=== PATIENT | male | born 1960 | race Caucasian/White ===

== ENCOUNTER 2017-10-31 17:38 | Observation (INO) | payer OTHER, SELFPAY ==
[2017-10-31] VITALS (19 sets, daily range): BP systolic 136–216; BP diastolic 85–120; PULSE 78–94; RESP 15–20; TEMP 36.4–36.8; O2SAT 95–99; BMI 33.7; BMI 33.1; BMI 33.2
--- NOTE | 2017-10-31 17:48 | EKG12_ITS ---
Test Reason : HTN Blood Pressure : / mmHG Vent. Rate : 090 BPM Atrial Rate : 090 BPM P-R Int : 210 ms QRS Dur : 100 ms QT Int : 366 ms P-R-T Axes : 042 034 053 degrees QTc Int : 447 ms Sinus rhythm with 1st degree A-V block Incomplete right bundle branch block Confirmed by SADIA RAMOS, JOSE ([id number]), manuscript editor MALDONADO MATTA ([id number]) on 11/04/2017 2:22:53 PM Referred By: Bart Hendrix Confirmed By:JOSE MCCULLOUGH MD
--- NOTE | 2017-10-31 17:48 | CT_ITS ---
STUDY: CT BRAIN WITHOUT CONTRAST REASON FOR EXAM: Male, 57 years old. Dizziness and ataxia. Possibly uncontrolled hypertension. RADIATION DOSAGE (If Supplied By Facility): CTDIvol = ( 44.99 ) mGy, DLP = ( 796.11 ) mGycm TECHNIQUE: Transaxial CT imaging of the brain was performed without administration of intravenous contrast material. Individualized dose optimization techniques were used for this CT. COMPARISON: None. FINDINGS: Normal soft tissue structures. Normal calvarium. Normal size ventricles and extra-axial spaces for the patient's age. Normal white matter tracts of the cerebral hemispheres. Normal basal ganglia and thalami. Normal brainstem. Oh small right cerebellar infarct. There is no intracranial hemorrhage. There are no findings of an acute ischemic infarction. Marked mucosal thickening of the left maxillary sinus. Large retention cyst of the right maxillary sinus. Mucosal thickening in the inferior recesses of the frontal sinuses. CT/Brain/Head without Contrast IMPRESSION: No acute intracranial findings. Negative for hemorrhage, hematoma or mass density. 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 Otherwise normal head CT exam. Electronically Signed: Radha Vides MD at 20:05 EDT , Service support ,
[2017-10-31 18:30] LABS: Bedside Glucose 267 mg/dL (70-110)
[2017-10-31 18:33] LABS: Absolute Lymphocyte Count 1.82 X10^3/ul (0.83-4.51); Absolute Neutrophil Count 7.1 X10^3/uL (2.0-7.7); Basophil# 0.02 X10^3/uL; Basophil% 0.2 % (0-1); Eosinophil# 0.13 X10^3/uL; Eosinophils% 1.4 % (0-5); Hematocrit 46.8 % (40-54); Hemoglobin 16.1 g/dl (13.0-16.5); Lymphocyte # 1.82 X10^3/ul (4.0); Lymphocyte % 19.2 % (19-41); Mean Corp Hgb Conc 34.4 g/gl (32-36); Mean Corpuscular Hgb 28.3 pg (27.0-32.0); Mean Corpuscular Volume 82.2 fL (80-94); Mean Platelet Vol. 11.2 fl (6.2-12.0); Monocyte# 0.36 X10^3/uL; Monocyte% 3.8 % (0-10); Neutrophil # 7.13 X10^3/uL (2.7-7.7); Neutrophil % 75.3 % (47-70); Platelet Count 164 K/mm3 (150-450); RBC Distribution Width CV 13.1 % (11.6-14.6); RBC Distribution Width SD 39.1 fl (35.1-43.9); Red Blood Count 5.69 M/mm3 (4.6-6.2); White Blood Count 9.5 K/mm3 (4.4-11.0)
--- NOTE | 2017-10-31 18:33 | ED.VISSUMM ---
- ER Visit Summary Date of Service: 10/31/17 Chief Complaint: Dizziness History of Present Illness: The patient is a 57 M who has not seen a doctor in years presents because of elevated blood pressure and dizziness. Patient states that his balance is off when asked specifically what he means by dizziness. He denies any double vision or blurred vision or loss of vision. Denies trouble with his speech or swallowing. He denies paresthesia, anesthesia or motor weakness. He denies any chest pain, shortness of breath or back pain. He does complain of nausea without vomiting or diarrhea. Onset at 1145 while at work. He was directed to come to the emergency department by his employer. Physical Examination: Blood pressure is elevated at 216/119. Head is atraumatic normocephalic. Pupils are equal round reactive. Extraocular muscles are intact. TMs are pearly white with landmarks noted. Nares patent with no drainage. Posterior pharynx without erythema or exudate. Uvula is midline. There is no dysphonia or dysphasia. Trachea is midline. There is no stridor with auscultation of the neck. Patient's speech is not normal; however, according to patient and it is normal for him. Heart is regular without murmur, gallop or rub. S1 and S2 are normal. Lungs are clear to auscultation with good movement of air bilaterally. Abdomen is soft nontender. Bowel sounds are present normal. There is no CVA tenderness noted. Patient is alert and oriented ?3. Motor is 5 over 5. Sensory is intact. DTRs are symmetric with no clonus or Babinski sign. Cranial 2 through 12 are intact. Cerebellar testing is normal. NIH is 0. Test Results: CBC is unremarkable. Troponin is normal. Coags are pending since first specimen was inadequate. Electronic panels marked for blood sugar of 273. CT of the head was reviewed by me and reveals no intracranial bleed of any type. There is evidence of bilateral maxillary sinusitis. This is chronic. Formal read is pending. Emergency Department Course and Treatment: Concerned this may represent a posterior circulatory problem versus hypertensive urgency/emergency stroke order set was initiated. Blood pressure reading at 1835 is 210/120. Therefore, will administer IV labetalol since his heart rate is 97. Treatment Plan: Patient did receive 20 mg of labetalol. His most recent blood pressure is 199/114. He did respond to the initial dose with a systolic 165. He will receive an additional dose of labetalol and will page the hospitalist for admission Disposition: Admit PCU Impression: 1. Accelerated hypertension new diagnosis (initial encounter) 2. Newly diagnosed diabetes mellitus 3. Vertigo uncertain etiology This note was generated with [employer] dictation software. It may contain incorrect words, spelling, and punctuation that were not noted in review of the chart prior to signing ED Disposition - Plan for ED Patient: Chief Complaint: Dizziness Referrals: Care Physician,No Primary [Primary Care Provider] -
--- NOTE | 2017-10-31 18:36 | ED.DCSUM_ITS ---
- ER Visit Summary Date of Service: 10/31/17 Chief Complaint: Dizziness History of Present Illness: The patient is a 57 M who has not seen a doctor in years presents because of elevated blood pressure and dizziness. Patient states that his balance is off when asked specifically what he means by dizziness. He denies any double vision or blurred vision or loss of vision. Denies trouble with his speech or swallowing. He denies paresthesia, anesthesia or motor weakness. He denies any chest pain, shortness of breath or back pain. He does complain of nausea without vomiting or diarrhea. Onset at 1145 while at work. He was directed to come to the emergency department by his employer. Physical Examination: Blood pressure is elevated at 216/119. Head is atraumatic normocephalic. Pupils are equal round reactive. Extraocular muscles are intact. TMs are pearly white with landmarks noted. Nares patent with no drainage. Posterior pharynx without erythema or exudate. Uvula is midline. There is no dysphonia or dysphasia. Trachea is midline. There is no stridor with auscultation of the neck. Patient's speech is not normal; however , according to patient and it is normal for him. Heart is regular without murmur, gallop or rub. S1 and S2 are normal. Lungs are clear to auscultation with good movement of air bilaterally. Abdomen is soft nontender. Bowel sounds are present normal. There is no CVA tenderness noted. Patient is alert and oriented ?3. Motor is 5 over 5. Sensory is intact. DTRs are symmetric with no clonus or Babinski sign. Cranial 2 through 12 are intact. Cerebellar testing is normal. NIH is 0. Test Results: CBC is unremarkable. Troponin is normal. Coags are pending since first specimen was inadequate. Electronic panels marked for blood sugar of 273. CT of the head was reviewed by me and reveals no intracranial bleed of any type. There is evidence of bilateral maxillary sinusitis. This is chronic. Formal read is pending. Emergency Department Course and Treatment: Concerned this may represent a posterior circulatory problem versus hypertensive urgency/emergency stroke order set was initiated. Blood pressure reading at 1835 is 210/120. Therefore , will administer IV labetalol since his heart rate is 97. Treatment Plan: Patient did receive 20 mg of labetalol. His most recent blood pressure is 199/114. He did respond to the initial dose with a systolic 165. He will receive an additional dose of labetalol and will page the hospitalist for admission Disposition: Admit PCU Impression: 1. Accelerated hypertension new diagnosis (initial encounter) 2. Newly diagnosed diabetes mellitus 3. Vertigo uncertain etiology This note was generated with [employer] dictation software. It may contain incorrect words, spelling, and punctuation that were not noted in review of the chart prior to signing ED Disposition - Plan for ED Patient: Chief Complaint: Dizziness Referrals: Care Physician,No Primary [Primary Care Provider] -
[2017-10-31 18:44] LABS: POSITIVE COUNT NO; POSITIVE DIFFERENTIAL NO; POSITIVE MORPHOLOGY NO
[2017-10-31 18:50] LABS: Anion Gap 8 (5-15); BUN 14 mg/dL (7-18); BUN/Creat Ratio 11.3 RATIO (10-20); Calcium,Total 9.2 mg/dL (8.5-10.1); Chloride 102 mmol/L (98-107); Creatinine, Serum 1.24 mg/dL (0.70-1.30); EST Glomerular Filtration Rate 64 mL/min (>60); Est Glom Filt Rate - Afr Amer 77 mL/min (>60); Estimated Creatinine Clearance 67.05 ml/min; Glucose 273 mg/dL (74-106); Potassium 4.1 mmol/L (3.5-5.1); Sodium Level 137 mmol/L (136-145)
[2017-10-31 19:33] LABS: International Normalized Ratio 0.9; Prothrombin Time (Protime)PT. 12.2 SECONDS (11.7-14.9)
[2017-10-31 19:34] LABS: Partial Thromboplast Time 28.6 Seconds (24.1-36.2)
--- NOTE | 2017-10-31 21:00 | ED.RN ---
PER DR. HARVEY, DISCONTINUE [facility].
[2017-10-31 23:18] LABS: Hemoglobin A1c 9.6 % (4.2-6.3)
--- NOTE | 2017-10-31 23:25 | PCM.HP.STD ---
Problem List (1) HTN (hypertension) Status: Chronic (2) Orthostatic dizziness Status: Acute (3) DMII (diabetes mellitus, type 2) Status: Acute History of Present Illness Date of Admission: 10/31/17 Chief Complaint: Accelerated HTN The patient is a 57 year old male w/ h/o HTN, DMII and vertigo admitted for accelerated HTN. 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 He felt dizzy after several hours into work. Standing up made his dizziness worse. Sitting or lying down improved his dizziness. No particular rotation. Dizziness was not depending on head position. His dizziness was worsening and lasted for hours. His dizziness was severe such that it affected his balance and his ability to function. Dizziness was not associated with any other symptoms. He went to the ED for further workup. Past Medical History Past Medical History (Chronic Problems): Chronic Problems HTN (hypertension) (Chronic) Allergies No Known Allergies Allergy (Verified 10/31/17 17:40) Home Medications: Ambulatory Orders Medication Instructions Recorded NK [NK] 10/31/17 Surgical History: no surgical history Psychiatric History: No pertinent psych hx Lives: With Family Smoking Status: Never smoker Alcohol: None Drugs: None - *Family History Maternal History Items: No pertinent history Review of Systems Constitutional: Denies: Chills, Fever, Weight Change HEENT: Denies: Head Aches, Sinus Congestion, Sinus Drainage Cardiovascular: Denies: Chest Pain, Palpitations Respiratory: Denies: Cough, Shortness of breath at rest, Sputum production Gastrointestinal: Denies: Abdominal Pain, Nausea, Vomiting Genitourinary: Denies: Dysuria Musculoskeletal: Denies: Joint Pain, Joint Tenderness Skin: Denies: Rash, Wounds Neurological: Reports: - - Dizziness. Denies: Focal weakness, Numbness, Tingling Psychiatric: Denies: Anxiety, Depression, Homicidal Ideations, Suicidal Ideations Hematologic/ Lymphatic: Denies: Easy Bruising, Easy Bleeding VTE Information - Inpt Only VTE Present on Admission: No VTE Mechan Device Prophylaxis: SCD's VTE Pharm Prophylaxis ordered?: Yes Patient Problems: Active and Suspected Problems Orthostatic dizziness (Acute) DMII (diabetes mellitus, type 2) (Acute) - Physical Exam General: Alert, Oriented x3, Cooperative HEENT: Atraumatic, PERRLA, EOMI, Normocephalic Neck: Supple, No JVD, Negative Carotid Bruits Lungs: Clear to auscultation, Normal air movement Cardiovascular: Regular rate, No murmurs Abdomen: Bowel Sounds Present, Soft, Non Tender Extremities: No edema, Capillary Refill Less than 3 Seconds Skin: No rashes, No breakdown Musculoskeletal: No Tenderness to Palpation of Joints or Extremities Neurological: Cranial nerves II-XII grossly intact Psych/Mental Status: Normal Affect, Appropriate Vital Signs Temp Pulse Resp BP Pulse Ox 98.2 F 88 18 190/113 H 97 10/31/17 23:00 10/31/17 23:00 10/31/17 23:00 10/31/17 23:00 10/31/17 23:00 Oxygen Delivery Method Room Air Weight: 104.9 kg Body Mass Index (BMI) 33.1 Assessment/Plan Active and Suspected Problems Orthostatic dizziness (Acute) DMII (diabetes mellitus, type 2) (Acute) 57 year old male w/ h/o HTN, DMII and vertigo admitted for accelerated HTN. 1) Accelerated HTN: Probably clamp down from hypovolemia. Will hydrate. Will start ACEI and betablocker. Will also give hydralazine PRN. Trops negative. 2) Dizziness: Probably orthostatic. Improved with hydration. CT disclosed old small right cerebellar infarct. Supportive care. 3) DMII: Will get HemA1C. Lifestyle changes emphasize. If elevated, most likely will need meds.
[2017-10-31] MEDS: 0.9% Normal Saline 1,000 ML 999 ML IV (23:55)
[2017-11-01] VITALS (10 sets, daily range): BP systolic 145–207; BP diastolic 89–126; PULSE 73–82; RESP 18–20; TEMP 36.6–36.7; O2SAT 96–98
[2017-11-01] MEDS: 0.9% Normal Saline 1,000 ML 999 ML IV (00:56)
[2017-11-01] MEDS: 0.45% Normal Saline 1,000 ML 150 ML IV (02:03)
[2017-11-01] MEDS: hydrALAZINE 20 MG/ML Vial 10 MG IV (04:42)
[2017-11-01] MEDS: 0.9% NaCl Peripheral Flush Adult/Peds IV (04:44)
[2017-11-01] MEDS: Heparin Injection (Vial) 5,000 UNIT/ML VIAL 5000 UNIT SC (05:47)
[2017-11-01] MEDS: Metoprolol Tartrate 25 MG Tablet 12.5 MG PO (06:26)
[2017-11-01] MEDS: hydroCHLOROthiazide 25 MG Tablet PO (06:26)
[2017-11-01] MEDS: Lisinopril 20 MG Tablet PO (06:26)
[2017-11-01 07:07] LABS: Hematocrit 40.9 % (40-54); Hemoglobin 13.9 g/dl (13.0-16.5); Mean Corpuscular Hgb 28.1 pg (27.0-32.0); Mean Corpuscular Volume 82.8 fL (80-94); Mean Platelet Vol. 11.7 fl (6.2-12.0); Platelet Count 170 K/mm3 (150-450); RBC Distribution Width CV 13.1 % (11.6-14.6); RBC Distribution Width SD 39.1 fl (35.1-43.9); Red Blood Count 4.94 M/mm3 (4.6-6.2); White Blood Count 8.3 K/mm3 (4.4-11.0)
[2017-11-01 07:11] LABS: Scan Indicated on CBC? Y/N NO
[2017-11-01 07:20] LABS: Anion Gap 7 (5-15); BUN 11 mg/dL (7-18); Calcium,Total 8.2 mg/dL (8.5-10.1); Chloride 105 mmol/L (98-107); EST Glomerular Filtration Rate 82 mL/min (>60); Est Glom Filt Rate - Afr Amer 99 mL/min (>60); Estimated Creatinine Clearance 83.14 ml/min; Glucose 249 mg/dL (74-106); Sodium Level 139 mmol/L (136-145)
--- NOTE | 2017-11-01 09:19 | PCM.DC ---
- Discharge Diagnoses Current Active Problems: Current Active and Chronic Problems HTN (hypertension) (Chronic) Orthostatic dizziness (Acute) DMII (diabetes mellitus, type 2) (Acute) You will use the following diet at home:: Calorie/Carbohydrate Controlled (specify 1200, 1400, etc) - 1800 zabrina Your food should be the consistency of: Regular Your liquids should be the consistency of: Regular/Thin Discharge Activity: Return to Normal Activity Weight Bearing Status: Full weight bearing Allergies/Adverse Reactions: Allergies No Known Allergies Allergy (Verified 10/31/17 17:40) Medications to take at Discharge Amlodipine [Norvasc] 5 mg PO DAILY #30 tab 11/01/17 Aspirin [Adult Low Dose Aspirin EC] 81 mg PO DAILY #1 tablet. 11/01/17 Lisinopril [Zestril] 40 mg PO DAILY #30 tab 11/01/17 Metformin(XR) [Glucophage Xr] 1,000 mg PO DAILY #60 tab 11/01/17 The following prescriptions were given: Amlodipine [Norvasc] 5 mg PO DAILY #30 tab Lisinopril [Zestril] 40 mg PO DAILY #30 tab Primary Care Physician: Care Physician,No Primary [Primary Care Provider] - Please follow up with your Primary Care Physician in: in 1-2 weeks
--- NOTE | 2017-11-01 09:26 | DCINST_ITS ---
- Discharge Diagnoses Current Active Problems: Current Active and Chronic Problems HTN (hypertension) (Chronic) Orthostatic dizziness (Acute) DMII (diabetes mellitus, type 2) (Acute) You will use the following diet at home:: Calorie/Carbohydrate Controlled ( specify 1200, 1400, etc) - 1800 zabrina Your food should be the consistency of: Regular Your liquids should be the consistency of: Regular/Thin Discharge Activity: Return to Normal Activity Weight Bearing Status: Full weight bearing Allergies/Adverse Reactions: Allergies No Known Allergies Allergy (Verified 10/31/17 17:40) Medications to take at Discharge Amlodipine [Norvasc] 5 mg PO DAILY #30 tab 11/01/17 Aspirin [Adult Low Dose Aspirin EC] 81 mg PO DAILY #1 tablet. 11/01/17 Lisinopril [Zestril] 40 mg PO DAILY #30 tab 11/01/17 Metformin(XR) [Glucophage Xr] 1,000 mg PO DAILY #60 tab 11/01/17 The following prescriptions were given: Amlodipine [Norvasc] 5 mg PO DAILY #30 tab Lisinopril [Zestril] 40 mg PO DAILY #30 tab Primary Care Physician: Care Physician,No Primary [Primary Care Provider] - Please follow up with your Primary Care Physician in: in 1-2 weeks
--- NOTE | 2017-11-01 17:13 | DS.PCM_ITS ---
Discharge Date and Diagnosis Date of Admission: 10/31/17 Date of Discharge: 11/01/17 - Primary Discharge Diagnosis #1 hypertensive urgency #2 type 2 diabetes-new diagnosis #3 cerebrovascular disease-remote - Secondary Discharge Diagnosis Chronic Problems HTN (hypertension) (Chronic) Hospital Course and Treatment Operations: None Procedures: None Summary of Care Provided: The patient is a 57 year old M seen in the emergency room at [facility] with chief complaint of dizziness and increased blood pressure. He had been at an urgent care with symptoms of dizziness, his blood pressure been checked and he was referred to the emergency room. Patient has a past history of hypertension but does not follow-up with the doctor as directed and takes no medications. Patient works in a factory. Patient's blood pressure on admission to the ER was 197/118, labs were obtained which showed an elevated blood sugar of 273, hemoglobin A1c was 9.6. Patient had a CT scan of the head which showed an old right cerebellar infarction. Patient was given labetalol in the emergency room and placed in observation status on PCU. Blood sugars were monitored, he was placed on blood pressure medications and had a good response. On 11/01/17, I had a discussion with the patient concerning his blood pressure and diabetes, patient appears to have some level of cognitive disability, I also talked with his sister about his diagnosis. Patient refuses to see the dietitian regarding diabetic teaching. On 11/01/17, patient was seen and examined felt to be in stable condition for discharge home, he was urged to follow-up with a physician and given an internal medicine physicians phone number to make an appointment in the coming week. Patient's sister knows that he probably will not be compliant with his diet regarding his diabetes. Due to his old stroke which was noted on his head CT, patient was instructed to take a baby aspirin a day. Discharge Activity: Return to Normal Activity Weight Bearing Status: Full weight bearing Home Medications: Medications to take at Discharge Amlodipine [Norvasc] 5 mg PO DAILY #30 tab 11/01/17 Aspirin [Adult Low Dose Aspirin EC] 81 mg PO DAILY #1 tablet. 11/01/17 Lisinopril [Zestril] 40 mg PO DAILY #30 tab 11/01/17 Metformin(XR) [Glucophage Xr] 1,000 mg PO DAILY #60 tab 11/01/17 Following Prescrptions Were Given to Patient: Amlodipine [Norvasc] 5 mg PO DAILY #30 tab Aspirin [Adult Low Dose Aspirin EC] 81 mg PO DAILY #1 tablet. Lisinopril [Zestril] 40 mg PO DAILY #30 tab Metformin(XR) [Glucophage Xr] 1,000 mg PO DAILY #60 tab Primary Care Physician: Care Physician,No Primary [Primary Care Provider] - Please follow up with your Primary Care Physician in: in 1-2 weeks Disposition: Home Minutes spent on discharge:: 25 Patient Condition:: Stable Medical Necessity - Tobacco Use Smoking Status: Never smoker Tobacco Use: Non-smoker Meaningful Use Info Meaningful Use Diagnoses (Choose all that apply): None applicable Code Visit OBSV E&M: 61167 Observation care discharge
== END 2017-11-01 09:25 | disposition home or self-care (01) ==
LOC: ED 18:29 → PCU 22:37
PROVIDERS: Admitting Provider Internal Medicine; Emergency Provider Emergency Medicine; Visit Provider Internal Medicine
DX: I16.0 Hypertensive urgency (principal); E11.9 Type 2 diabetes mellitus without complications; I10 Essential (primary) hypertension; Z86.73 Personal history of transient ischemic attack (TIA), and cerebral infarction without residual deficits; Z79.899 Other long term (current) drug therapy; Z79.84 Long term (current) use of oral hypoglycemic drugs; Z79.82 Long term (current) use of aspirin
CPT/HCPCS: 70450; 80048; 82962; 83036; 84484; 85025; 85027; 85610; 85730; 93005; 96361; 96372; 96374; 96375; 96376; 97802; 99218; 99285; 99406; J7030; A4216; G0378

== ENCOUNTER 2020-03-01 10:40 | Outpatient (RCR) | payer OTHER, SELFPAY | END 2020-03-01 23:59 | disposition home or self-care (01) | LOC: DC 10:40 | PROVIDERS: Visit Provider Nurse Practitioner | DX: Z71.3 Dietary counseling and surveillance (principal); E11.65 Type 2 diabetes mellitus with hyperglycemia | CPT/HCPCS: G0108 ==